=== PATIENT | male | born 1960 | race Hispanic/Latino ===

== ENCOUNTER 2020-09-24 13:45 | Outpatient (CLI) | payer BC | END 2020-09-24 13:46 | disposition home or self-care (01) | LOC: NAV RAD 13:45 | PROVIDERS: ATTEND Family Medicine | DX: Z01.818 Encounter for other preprocedural examination (principal) | CPT/HCPCS: 71046 ==

== ENCOUNTER 2021-04-07 11:27 | Emergency (ER) | payer BC ==
[~2021-04-07 11:27] MED LIST: Iopamidol 370 76% 100 ML VIAL ONE
[2021-04-07] MEDS ORDERED: Ondansetron PF 4 MG/2 ML Vial ONE (12:11)
[2021-04-07] MEDS ORDERED: Pantoprazole 40 MG VIAL ONE (12:11)
[2021-04-07 12:13] LABS: ALT (SGPT) 19 U/L (8-55); AST (SGOT) 22 U/L (5-34); Albumin 3.8 g/dL (3.5-5.0); Alkaline Phosphatase 117 U/L (40-110); Anion Gap 13 mmol/L (10-20); BUN (Urea Nitrogen) 17 mg/dL (8.4-25.7); Bilirubin, Total 0.8 mg/dL (0.2-1.2); Calc. Creatinine Clearance 0 mL/min (70-130); Carbon Dioxide 23 mmol/L (22-29); Chloride 107 mmol/L (98-107); Globulin 4.6 g/dL (2.4-3.5); Glucose 106 mg/dL (70-105); Lipase 41 U/L (8-78); Protein, Total 8.4 g/dL (6.0-8.3); Sodium 139 mmol/L (136-145)
[2021-04-07 12:15] LABS: #Basophils 0.1 thou/uL (0.0-0.2); #Neutrophils 5.5 thou/uL (1.40-6.50); %Monocytes 7.3 % (0.0-10.0); Hemoglobin 16.1 g/dL (14.0-18.0); Mean Corpuscular HGB CONC 31.9 g/dL (32.0-36.0); Mean Corpuscular Hemoglobin 27.9 pg (27.0-31.0); Mean Corpuscular Volume 87.6 fL (78.0-98.0); Mean Platelet Volume 8.8 fL (7.4-10.4); Platelet Count 141 thou/uL (130-400); RBC Distribution Width 16.5 % (11.5-14.5); Red Blood Cell (RBC) Count 5.76 mill/uL (4.70-6.10); White Blood Cell (WBC) Count 8.5 thou/uL (4.8-10.8)
[2021-04-07 12:18] LABS: #Lymphocytes 2.1 thou/uL (1.20-3.40); %Basophils 1.4 % (0.0-1.0); %Eosinophils 1.4 % (0.0-10.0); %Lymphocytes 25.1 % (21.0-51.0); %Neutrophils 64.8 % (42.0-75.0)
[2021-04-07 12:19] LABS: #Eosinphils 0.1 thou/uL (0.0-0.7); #Monocytes 0.6 thou/uL (0.11-0.59)
[2021-04-07] MEDS ORDERED: Aspirin Chewable 81 MG TAB ONE (12:26)
[2021-04-07] MEDS ORDERED: Mag-Al Plus 1200 MG/1200 MG/120 MG/30 ML UDCUP ONE (12:26)
[2021-04-07] MEDS ORDERED: Lidocaine Viscous Sol 2% 15 ml UD Cup ONE (12:26)
== END 2021-04-07 15:19 | disposition home or self-care (01) ==
LOC: NAV ERS 11:27
DX: R10.13 Epigastric pain (principal); I10 Essential (primary) hypertension; Z79.899 Other long term (current) drug therapy
CPT/HCPCS: 71045; 71275; 80053; 83690; 83880; 84484; 85025; 85379; 93005; 96374; 96375; C9113; J2405; Q9967

== ENCOUNTER 2021-04-23 21:23 | Emergency (ER) | payer BC ==
[2021-04-23] MEDS ORDERED: Aspirin Chewable 81 MG TAB ONE (22:05)
[2021-04-23] MEDS ORDERED: Pantoprazole 40 MG VIAL ONE (22:05)
[2021-04-23] MEDS ORDERED: Mag-Al Plus 1200 MG/1200 MG/120 MG/30 ML UDCUP ONE (22:05)
[2021-04-23] MEDS ORDERED: Lidocaine Viscous Sol 2% 15 ml UD Cup ONE (22:05)
[2021-04-23 22:20] LABS: Eosinophils 2 % (0-10); Hemoglobin 15.6 g/dL (14.0-18.0); Lymphocytes 26 % (21-51); MDiff Complete? YES; Mean Corpuscular HGB CONC 32.1 g/dL (32.0-36.0); Mean Corpuscular Hemoglobin 27.9 pg (27.0-31.0); Mean Platelet Volume 9.3 fL (7.4-10.4); Monocytes 6 % (0-10); Neutrophil 53 % (42-75); Platelet Count 152 thou/uL (130-400); Platelet Morphology Comment Appears Adequate; RBC Distribution Width 16.1 % (11.5-14.5); RBC Morphology Normal; Reactive Lymphocytes 13 % (0-10); Red Blood Cell (RBC) Count 5.58 mill/uL (4.70-6.10); White Blood Cell (WBC) Count 10.9 thou/uL (4.8-10.8)
[2021-04-23 22:26] LABS: ALT (SGPT) 22 U/L (8-55); AST (SGOT) 26 U/L (5-34); Albumin 3.8 g/dL (3.5-5.0); Alkaline Phosphatase 116 U/L (40-110); Anion Gap 13 mmol/L (10-20); BUN (Urea Nitrogen) 22 mg/dL (8.4-25.7); Bilirubin, Total 0.6 mg/dL (0.2-1.2); Calc. Creatinine Clearance 0 mL/min (70-130); Calcium 9.4 mg/dL (7.8-10.44); Carbon Dioxide 18 mmol/L (22-29); Chloride 109 mmol/L (98-107); Globulin 4.8 g/dL (2.4-3.5); Glucose 95 mg/dL (70-105); Lipase 52 U/L (8-78); Potassium 3.7 mmol/L (3.5-5.1); Protein, Total 8.6 g/dL (6.0-8.3); Sodium 136 mmol/L (136-145)
[2021-04-23] MEDS ORDERED: methylPREDNISolone Sod Succ/PF 125 MG/2 ML VIAL ONE (22:57)
[2021-04-24 00:04] LABS: Troponin I Less than 0.010 ng/mL (< 0.028)
== END 2021-04-24 00:19 | disposition home or self-care (01) ==
LOC: NAV ERS 21:23
DX: R06.02 Shortness of breath (principal); K21.9 Gastro-esophageal reflux disease without esophagitis; I10 Essential (primary) hypertension; Z79.899 Other long term (current) drug therapy
CPT/HCPCS: 36415; 71046; 80053; 83690; 84484; 85025; 85379; 93005; 96374; 96375; C9113; J2930